=== PATIENT | male | born 1940 | race Hispanic/Latino ===

== ENCOUNTER 2018-06-23 10:28 | Outpatient (CLI) | payer MEDICARE ==
--- NOTE | 2018-06-23 11:51 | Mammography Report ---
Bilateral mammogram: Patient presents with a tender palpable retroareolar finding on the left. Similar symptoms on the right in 2014. Routine views in addition to spot compression CC and lateral images of the left breast demonstrates increased fibroglandular tissue density behind the left areola. There is no definable mass nor calcifications. The remainder of the breast pattern bilaterally is unremarkable. Compared to his prior examination in 2014 a similar finding was noted on the right which is no longer present and the finding is currently identified on the left are new. CAD used. Impression: Left breast asymmetry consistent with benign gynecomastia. Recommendation: Clinical followup. Any additional evaluation at this time should be based on your concern. BI-RADS CATEGORY: 2 = Benign ACR BI-RADS MAMMOGRAPHIC CODES: 0 = Needs additional imaging evaluation; 1 = Negative; 2 = Benign; 3 = Probably benign; 4 = Suspicious; 5 = Malignant; 6 = Known biopsy-proven malignancy COMMENT: 1. Dense breast tissue, i.e., adenosis, fibrocystic changes, etc., may obscure an underlying neoplasm. 2. Approximately 10% of cancers are not detected with mammography. 3. A negative mammography report should not delay biopsy if a clinically suspicious mass is present.
== END 2018-06-23 10:29 | disposition home or self-care (01) ==
LOC: SPVWC 10:28
PROVIDERS: ATTEND Surgery
DX: N64.89 Other specified disorders of breast (principal)
CPT/HCPCS: 77066